=== PATIENT | male | born 2000 | race Two or more races ===

== ENCOUNTER 2021-05-20 16:41 | Emergency (ER) | payer SELFPAY ==
[~2021-05-20] VITALS: Ht 180.3 cm; Wt 82.0 kg
[2021-05-20 16:57] VITALS: BP 114/72
[2021-05-20] MEDS ORDERED: DEXAMETHASONE 4 MG TABLET ONE (17:53)
[2021-05-20] MEDS ORDERED: DEXAMETHASONE 4 MG TABLET PO ONE (18:00)
== END 2021-05-20 18:51 | disposition home or self-care (01) ==
LOC: ED 18:48
DX: J02.0 Streptococcal pharyngitis (principal)
CPT/HCPCS: 87081; 87880; 99283